=== PATIENT | male | born 1995 | race African-American/Black ===

== ENCOUNTER 2023-07-17 08:26 | Day surgery (SDC) | payer BC ==
[2023-07-08 14:42] VITALS: BMI 27.5
[2023-07-17] MEDS ORDERED: PROPOFOL 40 ML ONE (08:42)
[2023-07-17] MEDS ORDERED: MIDAZOLAM HCL 2 MG/2 ML SINGLE DOSE VIAL ONE (08:42)
[2023-07-17] MEDS ORDERED: BUPIVACAINE HCL/PF 2.5 MG/ML - 30 ML VIAL IJ ONE (09:10)
[2023-07-17] MEDS ORDERED: BUPIVACAINE HCL/PF 0.25% (2.5MG/ML) 10 ML VIAL ONE (09:10)
[2023-07-17] MEDS ORDERED: oxyCODONE HCL 5 MG TABLET PO PRN (09:33)
[2023-07-17] MEDS ORDERED: ONDANSETRON 4 MG/2 ML VIAL IVPUSH PRN (09:33)
[2023-07-17] MEDS ORDERED: LACTATED RINGERS SOLUTION 1,000 ML IV SCH (09:45)
[2023-07-17 11:20] VITALS: TEMP 97.4
[2023-07-17 12:20] VITALS: BP 130/89; PULSE 51; RESP 19
== END 2023-07-17 12:35 | disposition home or self-care (01) ==
LOC: FASU 08:26
PROVIDERS: ATTEND Orthopaedic Surgery Sports Medicine
PROC: 0SBC4ZZ Excision of Right Knee Joint, Percutaneous Endoscopic Approach (ICD-10-PCS; principal; 2023-07-17 10:15)
DX: S83.241A Other tear of medial meniscus, current injury, right knee, initial encounter (principal); X58.XXXA Exposure to other specified factors, initial encounter; Y92.9 Unspecified place or not applicable; Y93.9 Activity, unspecified; M65.861 Other synovitis and tenosynovitis, right lower leg
CPT/HCPCS: 94760